=== PATIENT | female | born 1950 | race Caucasian/White ===

== ENCOUNTER 2017-09-12 06:40 | Day surgery (SDC) | payer OTHER, SELFPAY ==
[2017-08-30 08:24] VITALS: BMI 24.3
[2017-09-12] VITALS (18 sets, daily range): BP systolic 115–166; BP diastolic 58–89; PULSE 52–68; RESP 8–21; TEMP 35.8–36.6; O2SAT 92–100; BMI 24.3
[2017-09-12] MEDS: LACTATED RINGERS 1,000 ML 42 ML IV (07:36)
[2017-09-12] MEDS: CEFAZOLIN 2 GM/100 ML FROZ.PIGGY IV (07:56)
[2017-09-12] MEDS: BUPIVACAINE 0.25% W/ EPI VIAL 30 ML INJ (08:38)
[2017-09-12] MEDS: fentaNYL 100 MCG/2 ML INJ 50 MCG IV ×2 (09:31→09:37)
--- NOTE | 2017-09-12 09:33 | PM.PREOP ---
Pre-operative Note Interval Note Pre-op Check: History & Physical Reviewed by Physician
[2017-09-12] MEDS: HYDROMORPHONE 2 MG INJ 0.5 MG IV ×2 (09:34→09:46)
--- NOTE | 2017-09-12 10:02 | SUR.PHASEI ---
REPORT CALLED TO RAMÓN WALTERS ON ACUTE CARE FLOOR. PT IN STABLE CONDITION, VSS. IV SITE CLEAR. LILY-PAD OBSERVED TO BE C/D/I. CATHETER SECURE AND DRAINING CLEAR YELLOW URINE. PT TOLERATING ORAL INTAKE WITHOUT ANY DIFFICULTLY. PT DENIES ANY NAUSEA. PT STATES PAIN IS 1/10 AND TOLERABLE AT THIS TIME. PT LAYING IN BED WITH EYES CLOSED AND APPEARS COMFORTABLE AT THIS TIME. PT BEING TRANSFERED TO ACUTE CARE.
--- NOTE | 2017-09-12 10:12 | SUR.PHASEI ---
PT TRANSFERED TO ACUTE CARE FLOOR IN STABLE CONDITION, VSS. PT TALKING TO RN DURING TRANSPORT. BEDSIDE REPORT GIVEN TO RAMÓN WALTERS. TRANSFERED CARE OF PT TO RAMÓN WALTERS.
[2017-09-12] MEDS: KETOROLAC 30 MG/ML VIAL IV ×2 (10:41→17:37)
[2017-09-12] MEDS: OXYCODONE/ACETAMINOPHEN 5/325 TABLET 2 TAB PO ×4 (11:13→23:14)
[2017-09-12] MEDS: PANTOPRAZOLE 20 MG TABLET PO ×2 (12:54→22:41)
[2017-09-12] MEDS: hydroCHLOROthiazide 25 MG TABLET PO (13:49)
[2017-09-12] MEDS: LACTATED RINGERS 1,000 ML 125 ML IV (17:38)
--- NOTE | 2017-09-12 18:24 | PM.GYNOP.1 ---
Operative Date/Time/Diagnoses Date of procedure: 09/12/17 Time of procedure: 09:45 Pre-op diagnosis: Cystocele and rectocele Post-op diagnosis: same Procedure: Procedures Operation Date: 09/12/17 07:45 Actual Procedures Side Surgeon p Colporrhaphy Anterior/Posterior Colporrhaphy Not Applicable Kymberly Bustamante MD Anterior and posterior repair Indications: Symptomatic cystocele and rectus Surgeon: Kymberly Bustamante Patient Safety Coordinator: David Antony Anesthesia Type: General Operative Notes Findings: Third-degree cystocele Third-degree rectocele Closure Type: primary Specimen(s): none Applied: catheter Estimated blood loss (mL): 50 Blood products transfused: none Procedure in detail: Two Allis clamps were placed at the apex of the cystocele. 6 mL of half percent Marcaine with epinephrine were injected and an incision was made with a #10 blade between the 2 Allis clamps. Wide Allis clamps were placed on the midline of the cystocele approximately 6. The mucosa was undermined using the Metzenbaum scissors and the mucosa incised in the midline moving the wide Allis clamps to the edges of the mucosa. The mucosa was dissected off the underlying fascia using an open moistened Ray-Orlando and a #10 blade. The fascia was reapproximated with 0 Vicryl with a series of horizontal mattress sutures. The excess vaginal mucosa was excised. The mucosa was closed using simple interrupted sutures with 2-0 Vicryl including the underlying fascia to close the space. The weighted speculum was removed from the vagina. Allis clamps were placed at the mucocutaneous junction at the introitus. 6 mL of half percent Marcaine with epinephrine were injected. An incision was made with a #10 blade between the 2 Allis clamps, and a triangular piece of skin and underlying subcutaneous tissue was removed. Allis clamps were placed in the midline of the rectocele. 10 mL of half percent Marcaine with epinephrine were injected submucosally. The mucosa was undermined using the Metzenbaum scissors and the mucosa incised in the midline, moving the wide Allis clamps to the mucosal edges. The underlying fascia was dissected off of the mucosa using an open moistened Ray-Orlando and a #10 blade. The fascia was reapproximated using 0 Vicryl with a series of horizontal mattress sutures. The excess vaginal mucosa was excised. The mucosa was closed using a series of simple interrupted sutures with 2-0 Vicryl including the underlying fascia to close the space. On the perineum 0 Vicryl was used to reapproximate the levator muscle. The subcutaneous layer was closed with 2-0 Vicryl. The skin was closed with 3-0 chromic in a subcuticular fashion. Hemostasis was achieved. A Betadine moistened vaginal pack was placed into the vagina. A rectal exam was done and there were no sutures palpable in the rectum. The urine was clear. Sponge, lap, and instrument counts were correct x-2. The patient tolerated the procedure well, was taken to PACU in stable condition. Complications: none Post-operative Condition: stable Disposition: PACU Plan for aftercare: To Med/Surg after recovery
--- NOTE | 2017-09-12 19:11 | PC.NURSE ---
Maddie resting in bed, ox3. Reporting pain 4/10 to lower abdomen, pelvis & groin after receiving IV Toradol. Assisted her to reposition to right side which she said gave immediate relief. Medicated with 2 Percocet. Rosenbaum patent with dilute clear yellow urine output, secured to leg. Mikala-pad is CDI. IV LR infusing at 125 ml/hour per new order by Dr Bustamante. Dr Bustamante here to see patient.
[2017-09-12] MEDS: ATENOLOL 50 MG TABLET 100 MG PO (21:00)
[2017-09-12] MEDS: LOVASTATIN 20 MG TABLET 40 MG PO (22:37)
[2017-09-12] MEDS: LISINOPRIL 20 MG TABLET 40 MG PO (22:39)
[2017-09-12] MEDS: DOCUSATE 250 MG CAPSULE PO (22:39)
--- NOTE | 2017-09-13 00:38 | PC.NURSE ---
Addendum entered by Letty Hodges R.N. 09/13/17 05:18: Slept at intervals. States she feels urge to urinate but has had 500cc urine in dewitt bag; feels it is related to packing/catheter. States pain in perineal area is 1/10 and requesting Tylenol which she does not have ordered so requested 1 Percocet rather than the ordered 2 tabs; medicated as requested. Original Note: Patient is alert and oriented. Breath sounds CTA with RA sat of 99%. HRR. Denies nausea. BT present and is passing flatus. Indwelling catheter is patent; linnea pad with small spot sanguinous drainage posterior pad. Pain internal she believes is due to catheter/packing is now 1/10 after receiving Percocet at shift changed. Independent with bed mobility. Fall risk score is moderate; bed alarm not needed at this time as patient oriented, no hx of falls, and is agreeable to calling for assist should she need to get out of bed.
[2017-09-13] MEDS: LACTATED RINGERS 1,000 ML 125 ML IV (02:12)
[2017-09-13 05:09] VITALS: BP 132/72; PULSE 56; RESP 16; TEMP 36.9
[2017-09-13] MEDS: OXYCODONE/ACETAMINOPHEN 5/325 TABLET 2 TAB PO ×3 (05:14→13:19)
[2017-09-13 05:58] LABS: Add Manual Diff / Slide Review NO; Basophils Percent Auto 0.2 % (0-2); Eosinophils Percent Auto 0.3 % (2-4); Hematocrit 34.6 % (36-46); Lymphocytes Percent Auto 25.6 % (25-40); Mean Corpuscular HGB Conc 34.6 % (30-36); Mean Corpuscular Hemoglobin 31.1 PG (26-34); Monocytes Percent Auto 7.2 % (3-14); Neutrophils Absolute Auto 5500 /uL (3000-5900); Neutrophils Percent Auto 66.7 % (50-75); Platelet Count 144 X10^3/uL (150-400); Red Blood Cell Count 3.85 X10^6/uL (4.0-5.2); Red Cell Distribution Width 12.6 % (11.6-14.8); White Blood Cell Count 8.3 X10^3/uL (4.5-11.0)
[2017-09-13 07:15] VITALS: BP 126/71; PULSE 54; RESP 16; TEMP 37; O2SAT 98
[2017-09-13] MEDS: hydroCHLOROthiazide 25 MG TABLET PO (09:27)
[2017-09-13] MEDS: PANTOPRAZOLE 20 MG TABLET PO (09:27)
[2017-09-13] MEDS: DOCUSATE 250 MG CAPSULE PO (09:27)
--- NOTE | 2017-09-13 11:56 | PC.NURSE ---
Addendum entered by Betsy Mott R.N. 09/13/17 14:53: Discharge: IV dc'd intact. Provided and reviewed all d/c info. Given follow up appt date/time. Given script for Oxycodone. Verbalized understanding of all d/c instructions and stated no further questions. Wheeled out to private vehicle by nursing staff. All belongings sent at discharge. Original Note: Addendum entered by Betsy Mott R.N. 09/13/17 13:24: Voided another 450 ml clear yellow urine and feels like she emptied her bladder. C/O /10 vaginal/lower abd pain- medicated with 2 tabs Percocet per her request. Indep to BR, steady on feet and denies dizziness/lightheadeness. Eager to see Dr Bustamante re: poss. d/c home today. Calls appropriately with needs. Original Note: Shift summary: Alert and oriented X3. Rosenbaum dc'd at 0900 per MD order. IV saline locked also. Patient voided 200 ml clear yellow urine into hat at 1045. She felt like she emptied her bladder and post void residual bladder scan showed 0 ml. Minimal pain, took 1 tab Vicodin approx 0930. Very scant vaginal spotting on linnea-pad. Tolerating PO's without N/V. Hopes she may get to d/c home later today. Up indep in room, or with 's SBA. Denies dizziness or lightheadedness. Calls appropriately with needs.
--- NOTE | 2017-09-13 15:34 | CM.DANOTE ---
DCP/Assessment: Reviewed chart. Patient is a 67yr old female admitted [facility] for cystocele and rectocele repair performed by Dr. Bustamante on 09-12-17. No PCP listed. Primary payor is 1)[employer] 2)[employer]. Met with patient and spouse/Rigo in room explained CM/SW role. Patient fully dressed and reports that she is going home today. Patient reports that she is completely I with all ADL's. Patient's spouse to provide transport. No d/c needs identified. P: Home today. JULIO Vigil Discharge Planning/Care Management CM Discharge Assessment Start: 09/13/17 15:32 Freq: Status: Active Protocol: Document 09/13/17 15:33 KJS (Rec: 09/13/17 15:34 KJS [id number]) Discharge Planning Assessment Assigned Pan Devulcanizer JULIO/Otilia History Provided By Patient Significant Other Has Patient been admitted in last 30 No days? Prior Living Arrangements House Household Members spouse Type of transporation used prior to Drives own vehicle admit Independent with ADL's Yes Is patient alert and oriented? Yes Caregiver for Another No Discharge Plan Home Transportation Arrangement Private automobile.
== END 2017-09-13 14:56 | disposition home or self-care (01) ==
LOC: OR 06:41 → AC 10:16
PROVIDERS: Visit Provider Obstetrics & Gynecology
PROC: (CPT 57260; principal; 2017-09-12 07:45)
DX: N81.10 Cystocele, unspecified (principal); N81.6 Rectocele; K21.9 Gastro-esophageal reflux disease without esophagitis
CPT/HCPCS: 57260; 36415; 85025; J0330; J0690; J1100; J1170; J1885; J2405; J2704; J3010

== ENCOUNTER 2018-08-04 09:24 | Day surgery (SDC) | payer OTHER, SELFPAY ==
[2017-09-12 10:20] VITALS: BMI 24.3
[2018-08-04 09:51] VITALS: BMI 21.4
[2018-08-04 09:56] VITALS: BP 126/84; PULSE 65; RESP 16; TEMP 36.4; O2SAT 99
[2018-08-04] MEDS: SODIUM CHLORIDE 0.9% 1,000 ML 200 ML IV (10:00)
--- NOTE | 2018-08-04 10:37 | PM.HP.1 ---
History of Present Illness Date Patient Seen: 08/04/18 Time Patient Seen: 10:38 Chief complaint: [id number] colonoscopy Narrative: The patient is a woman whose last colonoscopy was at least 5 years ago. She has had polyps removed in the past. She is here for a screening exam. Patient History Medical History Constipation (Chronic) Cystocele (Chronic) GERD (gastroesophageal reflux disease) (Chronic) HTN (hypertension) (Chronic) Hyperlipidemia (Chronic) Impaired vision (Chronic) Pelvic relaxation (Chronic) Rectocele (Chronic) Surgical History H/O abdominoplasty (Resolved) History of bilateral salpingectomy (Resolved) History of breast augmentation (Resolved) History of total abdominal hysterectomy (Resolved) Status post appendectomy (Resolved) S/P total abdominal hysterectomy and bilateral salpingo-oophorectomy Social History household members: spouse Smoking Status: Never smoker alcohol intake: current Family & Social History Social History: household members spouse Tobacco & Substance use: Smoking Status Never smoker alcohol intake current alcohol intake frequency a few times a week Substance Use Type does not use Meds Home Medications Medication Instructions Recorded Confirmed Type atenolol 100 mg PO QDAY #0 10/17/10 08/04/18 History lisinopril 40 mg PO QDAY #0 10/17/10 08/04/18 History omeprazole 20 mg PO BID 09/12/17 08/04/18 History tolterodine [Detrol LA] 4 mg PO QDAY #90 tab 07/07/18 08/04/18 Rx estradiol 1 mg PO DAILY 08/04/18 08/04/18 History spironolactone 50 mg PO BID 08/04/18 08/04/18 History Allergies Allergy/AdvReac Type Severity Reaction Status Date / Time No Known Drug Allergies Allergy Verified 08/04/18 09:48 Review of Systems Review of Systems All systems reviewed & are unremarkable except as noted in HPI and below Cardiovascular Comments: Has blanching with fingers and numbness in the fingers with cool temperatures Exam Vital Signs (past 8 hours): - 08/04/18 09:56 Temperature 97.6 F Pulse Rate 65 Respiratory Rate 16 Blood Pressure 126/84 Pulse Oximetry 99 Oxygen Delivery Method Room Air Narrative Exam Narrative: Pleasant cooperative patient no apparent distress. Lungs are clear to auscultation. No rales or rhonchi. Heart regular rate and rhythm no murmur gallop. Abdomen is soft nontender without mass. No obvious hernias. Patient is alert and oriented x3. Assessment & Plan Assessment & Plan narrative: The patient for a screening colonoscopy. I have discussed the procedure with them. Risks of bleeding, perforation which would necessitate major operation, failure to find remove all lesions, the potential tattoo were all discussed. All questions were answered. They wished to proceed.
--- NOTE | 2018-08-04 10:40 | PM.PREOP ---
Pre-operative Note Interval Note History & Physical reviewed/Exam performed by Physician: Yes Changes to H&P: No ASA Class (for procedural sedation): II
[2018-08-04] MEDS: MIDAZOLAM 5 MG/5 ML VIAL IV (11:13)
--- NOTE | 2018-08-04 11:15 | PM.OP.ENDO ---
Operative Date/Time/Diagnoses Date of procedure: 08/04/18 Time of procedure: 11:15 Pre-op diagnosis: Screening exam for colon cancer. Last exam 5 years ago. Patient has had polyps in the past. Post-op diagnosis: same Procedure & Clinicians Study performed: Colonoscopy Same procedure as scheduled: Yes Indications: Screening Surgeon: Bran Sanz Procedure Notes SCOAP/Timeout: Performed Procedure in detail: The patient was placed in the left lateral decubitus position and underwent IV sedation directed by the surgeon consisting of fentanyl and Versed. Digital exam was unremarkable. The scope was inserted and advanced through the rectum into the sigmoid, descending, transverse, and ascending colon. A stiffener was inserted in order to reach the cecum. The cecum was reached identified by the ileocecal valve and the appendiceal opening. The ileocecal valve was briefly cannulated. The terminal ileum was normal in appearance. The scope was gradually brought out. No Polyps were found. The scope ultimately was retroflexed in the rectum. The appearance was normal. The scope was removed and the patient tolerated the procedure well. The prep was excellent. Scope withdrawal time: 11 minutes Sedation minutes: 29 Findings: other findings (Normal exam) Specimen(s): none sent Complications: none Recommendations: Colonscopy in 5 years (Due to history of polyps) Follow up: as needed Disposition: PACU
[2018-08-04 11:16] VITALS: BP 131/82; PULSE 63; RESP 15; TEMP 36.7; O2SAT 100
[2018-08-04] MEDS: fentaNYL 250 MCG/5 ML INJ IV (11:16)
[2018-08-04 11:21] VITALS: BP 124/81; PULSE 59; RESP 12; O2SAT 100
[2018-08-04 11:26] VITALS: BP 126/87; PULSE 62; RESP 13; O2SAT 100
[2018-08-04 11:49] VITALS: BP 128/80; PULSE 61; RESP 16; TEMP 36.3; O2SAT 100
== END 2018-08-04 11:55 | disposition home or self-care (01) ==
PROVIDERS: PCP Family Medicine; Visit Provider Specialist
PROC: 0DJD8ZZ Inspection of Lower Intestinal Tract, Via Natural or Artificial Opening Endoscopic (ICD-10-PCS; CPT 45378; principal; 2018-08-04 10:45)
DX: Z86.010 Personal history of colon polyps (principal); I10 Essential (primary) hypertension; E78.5 Hyperlipidemia, unspecified
CPT/HCPCS: 45378; 99152; 99153; J2250; J3010

== ENCOUNTER → 2020-05-05 10:03 | Outpatient (CLI) | payer OTHER, MEDICARE, SELFPAY ==
[2017-09-12 10:20] VITALS: BMI 24.3
[2020-05-05 11:37] LABS: HEMOLYSIS < 15 (0-50); Potassium 3.9 mmol/L (3.4-5.1)
== END ==
PROVIDERS: PCP Family Medicine; Referring Provider Physician Assistant; Visit Provider Physician Assistant
DX: L64.8 Other androgenic alopecia (principal)
CPT/HCPCS: 36415; 84132

== ENCOUNTER 2021-03-28 08:03 | Emergency (ER) | payer MEDICARE, OTHER, SELFPAY ==
[2017-09-12 10:20] VITALS: BMI 24.3
[2021-03-28 08:19] VITALS: BP 135/66; PULSE 57; RESP 20; TEMP 36.2; O2SAT 100; BMI 22.7
--- NOTE | 2021-03-28 10:19 | CM.SWNOTE ---
TIMING INSPECTOR Note TIMING INSPECTOR requested by Dr Harper to assist in getting this patient grief support services; she arrives to the ED today w/spouse Rigo...who will be admitted to the acute care floor for C19 pneumonia. This couple has recently lost their daughter who in the hospital after battling metastatic breast cancer. Patient has an 18 yo grandson they are assisting through this time. Met w/patient to introduce role; she explains that everything is happening at once and admits she is exhausted. Denies needs from this TIMING INSPECTOR, however, willing to accept a brochure from [facility] We discussed grief support and the importance of connecting w/professionals to assist in processing grief and patient stated understanding. Patient is concerned about her 's well being and is currently organizing the business aspect of her daughter's and will; which patient states is helping keep me busy TIMING INSPECTOR available today. TIMING INSPECTOR team also available to patient and her spouse Rigo while Rigo is admitted on the acute care floor. JULIO Owens
--- NOTE | 2021-03-28 11:14 | ED_ITS ---
HPI - Psych General Chief Complaint: Psychiatric Symptoms Stated Complaint: not able to sleep Time Seen by Provider: 03/28/21 08:15 Source: patient Mode of arrival: Ambulatory History of Present Illness HPI Narrative: 70-year-old woman with a history of hypertension whose daughter on the of this month presents with mild COVID symptoms and significant grief reaction issues. She needs sleep presented with her who has much more severe COVID symptoms and briefly described significant difficulty sleeping, excessive fatigue, perseverating thoughts and difficulty in dealing with the recent loss of her daughter as well as acute illness with her . She describes no specific fevers, mild cough mild sore throat. No palpitations or chest pain no lower extremity edema. Related Data Home Medications Medication Instructions Recorded Confirmed atenolol 25 mg tablet 100 mg PO QDAY #0 10/17/10 08/04/18 lisinopril 10 mg tablet 40 mg PO QDAY #0 10/17/10 08/04/18 omeprazole 20 mg tablet,delayed 20 mg PO BID 09/12/17 08/04/18 release estradiol 1 mg tablet 1 mg PO DAILY 08/04/18 08/04/18 spironolactone 50 mg tablet 50 mg PO BID 08/04/18 08/04/18 Previous Rx's Medication Instructions Recorded tolterodine 4 mg capsule,extended 4 mg PO DAILY #90 cap 11/07/19 release 24 hr estradiol 10 mcg vaginal tablet 10 mcg VAG 2XW #24 tab 09/23/20 (Yuvafem) diazepam 5 mg tablet 5 mg PO TID PRN #20 tab 03/28/21 Allergies Allergy/AdvReac Type Severity Reaction Status Date / Time No Known Drug Allergies Allergy Verified 03/28/21 08:19 Review of Systems Review of Systems Narrative: Remainder of complete review of systems is otherwise unremarkable except for that included in the HPI. Patient History Medical History Actinic keratosis (~2014) Chickenpox Colon polyps (~2003) Constipation Cystocele Endometriosis (~1992) GERD (gastroesophageal reflux disease) (~1999) Hemorrhoids HTN (hypertension) (~1996) Hyperlipidemia Impaired vision Measles Pelvic relaxation Rectocele Vertigo Surgical History H/O abdominoplasty History of bilateral salpingectomy History of breast augmentation (~2010) History of colonoscopy (~2009) History of total abdominal hysterectomy (~1992) S/P total abdominal hysterectomy and bilateral salpingo-oophorectomy Status post appendectomy (~2011) Family History Mother Hyperlipidemia Hypertension Brother Lung cancer Grandfather Stroke Grandmother No problems noted. Social History household members: spouse Smoking Status: Never smoker alcohol intake: current Smoking Status: Never smoker alcohol intake frequency: a few times a week Substance Use Type: does not use Exam Initial Vital Signs Initial Vital Signs: Vital Signs Temperature 97.1 F L 03/28/21 08:19 Pulse Rate 57 L 03/28/21 08:19 Respiratory Rate 20 03/28/21 08:19 Blood Pressure 135/66 03/28/21 08:19 Pulse Oximetry 100 03/28/21 08:19 General: Alert appropriate in no acute distress Respiratory: Able to speak in full sentences, no obvious respiratory distress Skin: No obvious rashes, warm and dry Neurologic: Grossly intact no obvious asymmetries or abnormalities Psych: appropriate insight, somewhat flat affect, mildly tearful fluent and ap propriate speech patterns Course Orders Ordered: ED Orders 03/28/21 09:22 Consult to PERSONAL ATTENDANT - Senior C Developer Stat Vital Signs Vital signs: Vital Signs - 8 hr 03/28/21 08:19 Temperature 97.1 F L Pulse Rate 57 L Respiratory Rate 20 Blood Pressure 135/66 Pulse Oximetry 100 MDM - Psych MDM Narrative Medical decision making narrative: 70-year-old woman with significant acute grief reaction after the loss of her daughter 12 days ago with concurrent mild COVID symptoms, and significant COVID infection in her . We briefly discussed the that use of anti anxiety medications as a bridge to help her deal with her grief and help with sleep. [facility] was able to give her some information and suggestions for help with acute grieving. At this time she is safe for home discharge Discharge Plan Departure Patient Disposition: Home Clinical Impression: Grief reaction, COVID-19 Instructions: Coping with Grief Activity Restrictions/Additional Instructions: Thank you for coming in today I am so sorry for the loss of your daughter. I am going to give you a prescription for diazepam/Valium, and anxiety medication. This can help dull the edges of the grief briefly so that you can function and do what needs to be done. This does not fix anything. Hopefully can make the steps that you need to take his your making way through this grief process slightly less painful. This prescription was electronically transmitted to [facility] Use the medication as needed to help with anxiety and sleep. Do not drive while taking this and if it does make you sleepy feel free to take a nap if you are able to do so or have an extra cup of coffee you are not. I wish you the best Prescriptions: New diazepam 5 mg tablet 5 mg PO TID PRN (Reason: prn) Qty: 20 0RF No Action lisinopril 10 MG tablet 40 mg PO QDAY Qty: 0 0RF atenolol 25 MG tablet 100 mg PO QDAY Qty: 0 0RF tolterodine 4 mg capsule,extended release 24hr 4 mg PO DAILY Qty: 90 0RF Rx Instructions: Please schedule appointment for additional refills. estradiol [Yuvafem] 10 mcg tablet 10 mcg VAG 2XW Qty: 24 0RF Rx Instructions: Please call and schedule follow up appointment. omeprazole 20 mg Tablet,Delayed Release (Dr/Ec) 20 mg PO BID 0RF estradiol 1 mg Tablet 1 mg PO DAILY 0RF spironolactone 50 mg Tablet 50 mg PO BID 0RF Referrals: Irvin Rueda DO [Primary Care Provider] -
== END 2021-03-28 11:44 | disposition home or self-care (01) ==
PROVIDERS: Emergency Provider Emergency Medicine; PCP Family Medicine
DX: F43.20 Adjustment disorder, unspecified (principal); U07.1 COVID-19
CPT/HCPCS: 99282; 99283

== ENCOUNTER → 2022-09-27 13:36 | Outpatient (CLI) | payer OTHER, MEDICARE, SELFPAY ==
[2017-09-12 10:20] VITALS: BMI 24.3
[2022-09-30 16:27] LABS: H. Pylori Antigen Stool Negative (Negative)
== END ==
PROVIDERS: PCP Nurse Practitioner Family; Referring Provider Surgery; Visit Provider Surgery
DX: R10.9 Unspecified abdominal pain (principal)
CPT/HCPCS: 87338

== ENCOUNTER 2022-11-09 08:59 | Day surgery (SDC) | payer OTHER, MEDICARE, SELFPAY ==
[2017-09-12 10:20] VITALS: BMI 24.3
[2022-11-09] VITALS (8 sets, daily range): BP systolic 130–162; BP diastolic 65–95; PULSE 54–87; RESP 14–26; TEMP 36.4–36.8; O2SAT 95–100
--- NOTE | 2022-11-09 | PATH_ITS ---
[facility] Accession Number: [id number] No. of containers..03 Tissue . 01 Material submitted: . PART A: small bowel - SMALL BOWEL PART B: gastrointestinal site - GASTRIC PART C: colon - SIGMOID POLYP . 01 Diagnosis: A. Small Bowel, Biopsy: Small bowel mucosa with no significant diagnostic alterations. No evidence of celiac disease. . B. Gastric, Biopsy: Gastric oxyntic-type mucosa with features suggestive of early fundic gland polyp. No Helicobacter pylori organisms identified on H/E slide. No intestinal metaplasia, dysplasia, or malignancy identified. . C. Sigmoid Colon Polyp, Biopsy: Tubular adenoma. [facility] 11/17/2022 1119 Local . 01 Electronically signed: . Karen Ludwig MD, Pathologist NPI- [id number] . 01 Gross description: . Part A: SMALL BOWEL: eceived in formalin is 1 fragment(s) of craven, soft tissue measuring 0.3 x 0.1 x 0.1 cm submitted entirely in 1 cassette(s) Part B: GASTRIC : Received in formalin is 2 fragment(s) of craven, soft tissue measuring 0.3 x 0.1 x 0.1 cm to 0.2 x 0.2 x 0.1 cm submitted entirely in 1 cassette(s) Part C: SIGMOID POLYP: Received in formalin is 1 fragment(s) of craven, soft tissue measuring 0.5 x 0.4 x 0.4 cm submitted entirely in 1 cassette(s) /AA 11/17/2022 1406 Local . 01 Pathologist provided ICD-10: D13.1, D12.5 . 01 CPT . 648005, 095641, 458306 Specimen Comment: A courtesy copy of this report has been sent to [phone] Performed at: 01 [facility] [address] [facility] [place], [place], [place] [id number] MD Kris Medrano MD Phone: [phone]
--- NOTE | 2022-11-09 | DI.RAD.S_ITS ---
PROCEDURE: XR ABDOMEN 1V INDICATIONS: abd pain p/colonoscopy TECHNIQUE: One view of the abdomen acquired. COMPARISON: [facility], CT, ABDOMEN/PELVIS WITH CONTRAST, 09/24/2013, 0:21. [facility], , XR PELVIS WITH LATERAL HIP RIGHT, 01/08/2022, 11:43. FINDINGS: Surgical changes and devices: Clips in the right lower quadrant. Bowel: Prominent bowel gas within the colon. Right colon is prominent. Scattered small bowel gas. No free air demonstrated. Soft tissues: No suspicious abdominal calcifications. Bones: No suspicious bony lesions. IMPRESSION: No free air is demonstrated. Prominent gas in the colon. Dictated by: Mervin Dale M.D. on 11/09/2022 at 11:52 Approved by: Mervin Dale M.D. on 11/09/2022 at 11:54
[2022-11-09] MEDS: LACTATED RINGERS 1,000 ML 200 ML IV (09:17)
--- NOTE | 2022-11-09 10:13 | P.HP_ITS ---
History of Present Illness History of Present Illness Date Patient Seen: 11/09/22 Time Patient Seen: 10:13 Chief complaint: EGD/Colonoscopy Narrative: 72-year-old woman with epigastric here for diagnostic EGD and colonoscopy. Please refer to the H and P from August 2022 for further detail. In the interim she reports an improvement in her epigastric pain and nausea after the introduction of a probiotic and doubling the dose of her PPI medication. [facility] Medical History Actinic keratosis (~2014) Chickenpox Colon polyps (~2003) Constipation Cystocele Endometriosis (~1992) GERD (gastroesophageal reflux disease) (~1999) Hemorrhoids HTN (hypertension) (~1996) Hyperlipidemia Impaired vision Measles Pelvic relaxation Rectocele Vertigo Surgical History H/O abdominoplasty History of bilateral salpingectomy History of breast augmentation (~2010) History of colonoscopy (~2009) History of total abdominal hysterectomy (~1992) S/P total abdominal hysterectomy and bilateral salpingo-oophorectomy Status post appendectomy (~2011) Family History Mother Hyperlipidemia Hypertension Brother Lung cancer Grandfather Stroke Grandmother No problems noted. Daughter Breast cancer Gallstones Aunt Cancer Uncle Cancer Social History (Updated 09/24/22 @ 10:45 by Kymberly Voss MA) marital status: household members: spouse lives independently: Yes occupational status: unemployed Smoking Status: Never smoker alcohol intake: current substance use type: does not use Meds Home Medications and Allergies Home Medications Medication Instructions Recorded Confirmed Type atenolol 25 mg tablet 50 mg PO QDAY ##0 10/17/10 11/09/22 History omeprazole 20 mg tablet,delayed 20 mg PO BID 09/12/17 11/09/22 History release estradiol 1 mg tablet 1 mg PO DAILY 08/04/18 11/09/22 History Lactobacillus combo no.23 [Ector PO 09/24/22 09/24/22 History Probiotic] biotin PO 09/24/22 09/24/22 History cholecalciferol (vitamin D3) PO 07/28/23 07/28/23 History hydrochlorothiazide 25 mg tablet 25 mg PO DAILY 09/24/22 11/09/22 History lovastatin 10 mg tablet 10 mg PO DAILY 09/24/22 11/09/22 History magnesium glycinate PO 09/24/22 09/24/22 History zinc acetate PO 09/24/22 09/24/22 History Allergies Allergy/AdvReac Type Severity Reaction Status Date / Time No Known Drug Allergies Allergy Verified 11/09/22 09:26 Exam Vital Signs (past 8 hours): - 11/09/22 09:37 Temperature 98.2 F Pulse Rate 87 Respiratory Rate 16 Blood Pressure 156/82 H Oxygen Delivery Method Room Air Oxygen Delivery Method Room Air Narrative Exam Narrative: General adult woman alert oriented no acute distress Abdomen soft nontender nondistended Assessment & Plan Assessment and plan (1) Abdominal pain: Qualifiers: Abdominal location: epigastric Qualified Code(s): R10.13 - Epigastric pain Status: Acute Assessment & Plan narrative: 72-year-old woman with epigastric pain and nausea here for diagnostic EGD and colonoscopy. Technical details were discussed. Risks, benefits, alternatives explained. Risks including but not limited to myocardial infarction, aspiration, bleeding, pain, missed lesion, incomplete examination, need for further radiographic studies, intestinal perforation, and need for major abdominal surgery were discussed. All questions were answered to their satisfaction, and they are in agreement with this plan.
--- NOTE | 2022-11-09 10:15 | PM.OP.EC ---
Operative Date/Time/Diagnoses Date of procedure: 11/09/22 Time of procedure: 10:15 Pre-op diagnosis: Epigastric pain Post-op diagnosis: other (Gastritis and duodenitis) Procedure & Clinicians Study performed: Esophagoduodenoscopy and colonoscopy Same procedure as scheduled: Yes Indications: 72-year-old woman with epigastric pain and nausea here for diagnostic esophagoduodenoscopy and colonoscopy Surgeon: Sung Varela Procedure Notes Procedure in detail: The history and physical was performed/updated and the patient is ASA class is 2. The procedure was discussed in detail with the patient. Potential risks complications including infection, bleeding, missed diagnosis, perforation, need for surgery, and were explained. Their questions were answered and informed consent was obtained. Patient placed in left lateral decubitus position. Time out was performed. Procedural sedation was administered by Anesthesia. A bite block was placed. the scope was inserted into the mouth and advanced through the esophagus and into the stomach. The stomach was notable for mild gastritis no active hemorrhage biopsies of the stomach were obtained with forceps. The pylorus was intubated and the 1st portion of the duodenal was notable for duodenitis no distinct ulcer or active hemorrhage biopsies were obtained. The scope was withdrawn into the esophagus the Z line was seen at 35 cm from the incisions. There was no Cole's esophagitis, esophageal masses or strictures. Stomach was desufflated and scope removed. Examination began with a thorough inspection of the perianal area there was no evidence of fissures, fistulae, external hemorrhoids or cutaneous malignancy. The colonoscopy scope was then placed into the anal canal and was advanced to the cecum, which was identified by the ileocecal valve, the appendiceal orifice and the confluence of the taenia. The scope was then slowly withdrawn examining colon thoroughly in all directions, irrigating it of any residual stool. Sigmoid 5 mm polyp removed in entirety with cold snare. The patient tolerated the procedure well. They will be discharged once criteria are met. The prep was of good/excellent quality. The withdrawl time was 6 minutes. Specimen(s): other (Gastric, duodenum, sigmoid polyp) Impression: Gastritis, duodenitis, sigmoid polyp Post-procedure Plan for aftercare: Continue omeprazole 20 mg twice daily. Will notify with biopsy results. Colonoscopy follow-up is dependent on pathology findings likely 5 years. Disposition: same day surgery
--- NOTE | 2022-11-09 11:12 | SUR.PHASEI ---
1105 notified r/t increasing pt abd discomfort
[2022-11-09] MEDS: LORazepam 2 MG/ML INJ 0.5 MG IV (11:27)
== END 2022-11-09 12:15 | disposition home or self-care (01) ==
PROVIDERS: PCP Nurse Practitioner Family; Referring Provider Surgery; Visit Provider Surgery
PROC: 0DJ08ZZ Inspection of Upper Intestinal Tract, Via Natural or Artificial Opening Endoscopic (ICD-10-PCS; CPT 43235; principal; 2022-11-09 10:15)
PROC: 0DJD8ZZ Inspection of Lower Intestinal Tract, Via Natural or Artificial Opening Endoscopic (ICD-10-PCS; CPT 45378; 2022-11-09 10:15)
DX: R10.13 Epigastric pain (principal); K29.70 Gastritis, unspecified, without bleeding; K29.80 Duodenitis without bleeding; D12.5 Benign neoplasm of sigmoid colon; D13.1 Benign neoplasm of stomach
CPT/HCPCS: 45385; 43239; 74018; J2060; J2704

== ENCOUNTER → 2023-01-26 14:22 | Outpatient (CLI) | payer OTHER, MEDICARE, SELFPAY ==
[2017-09-12 10:20] VITALS: BMI 24.3
--- NOTE | 2023-01-26 14:25 | DI.RAD.S_ITS ---
PROCEDURE: XR CERVICAL SPINE 4V OR 5V INDICATIONS: NECK PAIN TECHNIQUE: 5 views of the cervical spine acquired. COMPARISON: None. FINDINGS: Bones: No fractures or dislocations to the C7-T1 level. Severe degenerative changes are present throughout the cervical spine including intervertebral disc space narrowing, endplate sclerosis, and osteophytosis. There is loss of the expected cervical lordosis. Trace anterolisthesis is present at C4-5 and C7-T1. There is mild foraminal stenosis throughout the cervical spine on the left. On the right there is severe neural foraminal stenosis from C2-C5 and at C6-7. Soft tissues: No prevertebral soft tissue swelling. IMPRESSION: 1. Severe degenerative changes of the cervical spine with mild to severe foraminal stenosis as above. 2. No compression deformities. Dictated by: Annie Delcid M.D. on 01/26/2023 at 15:35 Approved by: Annie Delcid M.D. on 01/26/2023 at 15:38
== END ==
PROVIDERS: PCP Nurse Practitioner Family; Referring Provider Physical Medicine & Rehabilitation; Visit Provider Physical Medicine & Rehabilitation
DX: M54.2 Cervicalgia (principal); M48.02 Spinal stenosis, cervical region
CPT/HCPCS: 72050

== ENCOUNTER → 2023-01-31 19:30 | Outpatient (CLI) | payer OTHER, MEDICARE, SELFPAY ==
[2017-09-12 10:20] VITALS: BMI 24.3
--- NOTE | 2023-01-31 19:32 | DI.MRI.S_ITS ---
PROCEDURE: MR CERVICAL SPINE WO CON INDICATIONS: Cervical radiculopathy TECHNIQUE: Noncontrast sagittal T1 spin echo and T2 fast spin echo, sagittal STIR, foraminal oblique sagittal T2 fast spin echo, and axial gradient echo or T2 fast spin echo through the cervical spine. COMPARISON: [facility] Outside Film, MR, MR CERVICAL SPINE WITHOUT CONTRAST, 11/27/2019, 9:11. FINDINGS: Image quality: Excellent. Alignment and Curvature: Straightening of normal cervical lordosis. Bone Marrow: Marrow demonstrates normal overall signal. Spinal Cord: Visualized spinal cord has normal size and signal. No cerebellar tonsillar herniation. Paraspinous Soft Tissues: No paravertebral masses. Prevertebral soft tissues are normal in thickness. Right thyroid lobe nodule measuring 1.2 centimeters. Left thyroid lobe nodule measuring 1.6 centimeters. C2-C3: Disc desiccation small posterior disc osteophyte complex. No central canal or neural foraminal stenosis. C3-C4: Disc desiccation and small posterior disc osteophyte complex centrally abutting the ventral cord. Mild central canal stenosis. Facet and uncovertebral arthropathy. Moderate left and mild right neural foraminal stenosis is similar compared to prior. C4-C5: Disc desiccation height loss. Minimal posterior disc osteophyte complex. No central canal stenosis. Facet and uncovertebral arthropathy. Moderate left and mild right neural foraminal stenosis is stable. C5-C6: Disc desiccation height loss. Small posterior disc osteophyte complex. Mild central canal stenosis. Facet and uncovertebral arthropathy. Moderate left and mild right neural foraminal stenosis. C6-C7: Disc desiccation height loss. Small posterior disc osteophyte complex. Mild central canal stenosis. Facet and uncovertebral arthropathy. Moderate left and mild right neural foraminal stenosis. C7-T1: No central canal or neural foraminal stenosis. IMPRESSION: 1. Multilevel degenerative changes of the cervical spine which are not significantly changed compared to prior, as described above. 2. Mild central canal stenosis at C3-C4, C5-C6 and C6-C7. 3. Multilevel mild and moderate neural foraminal stenosis as above. 4. Bilateral thyroid nodule measuring up to 1.6 centimeters. Recommend thyroid ultrasound for further evaluation. Dictated by: Kalin Del Rio M.D. on 02/01/2023 at 9:18 Approved by: Kalin Del Rio M.D. on 02/01/2023 at 9:27
== END ==
PROVIDERS: PCP Nurse Practitioner Family; Referring Provider Physical Medicine & Rehabilitation; Visit Provider Physical Medicine & Rehabilitation
DX: M47.22 Other spondylosis with radiculopathy, cervical region (principal); M48.02 Spinal stenosis, cervical region; E04.2 Nontoxic multinodular goiter
CPT/HCPCS: 72141

== ENCOUNTER 2023-02-10 09:05 | Outpatient (CLI) | payer OTHER, MEDICARE, SELFPAY ==
[2017-09-12 10:20] VITALS: BMI 24.3
[2023-02-10] VITALS (8 sets, daily range): BP systolic 135–160; BP diastolic 70–81; PULSE 48–52; RESP 12–21; TEMP 36.3; O2SAT 95–100
--- NOTE | 2023-02-10 09:45 | DI.RAD.S_ITS ---
PROCEDURE: PAIN C/T FACET INJ/BLK 1ST L INDICATIONS: RADICULOPATHY COMPARISON: [facility], CR, XR CERVICAL SPINE 4V OR 5V, 01/26/2023, 14:50. [facility], MR, MR CERVICAL SPINE WO CON, 01/31/2023, 19:49. FINDINGS: Fluoroscopic spot filming was performed to verify placement of spinal needles on the left at the C5-C6 and C6-C7 levels, as labeled on the films. Appropriate location of the needle tips was confirmed by injection of iodinated contrast. IMPRESSION: Intraprocedural examination demonstrating appropriate positions of the needles. Dictated by: Ric De Jesus M.D. on 02/10/2023 at 18:50 Approved by: Ric De Jesus M.D. on 02/10/2023 at 18:50
[2023-02-10] MEDS: MIDAZOLAM 2 MG/2 ML VIAL 1 MG IV (10:14)
[2023-02-10] MEDS: BUPIVACAINE 0.25% (PF) VIAL 2 ML INJ (10:16)
[2023-02-10] MEDS: DEXAMETHASONE 10 MG/ML VIAL 20 MG INJ (10:17)
[2023-02-10] MEDS: iopamidoL 15 ML VIAL 3 ML INJ (10:17)
--- NOTE | 2023-02-10 10:33 | P.PCN_ITS ---
Date/Time/Diagnoses Date of procedure: 02/10/23 Time of procedure: 10:33 Pre-procedure diagnosis: 1. FACET ARTHROPATHY 2. AXIAL NECK PAIN Post-procedure diagnosis: same Procedure Notes Procedure: 1. FLUOROSCOPICALLY GUIDED, CONTRAST-CONTROLLED LEFT C5/6 AND C6/7 FACET JOINT INJECTIONS WITH CONSCIOUS SEDATION. Indications: Maddie is referred by SHABBIR Sanchez for treatment of Axial Neck Pain Physician: Wale Valencia Total Fluoroscopy time (seconds): 13 Total sedation minutes: 10 Complications: none Procedure in detail & Post-procedure care: DESCRIPTION OF PROCEDURE Fluoroscopically guided, contrast-controlled left C5/6 and C6/7 facet joint injections with conscious sedation. Following review of allergy and review of potential side effects and complications, including, but not necessarily limited to, infection, allergic reaction, local tissue breakdown, stroke, temporary or permanent nerve injury and paralysis, the patient indicated that the patient understood and agreed to proceed. An informed consent document was signed by the patient, witnessed by a nurse, and placed in the patient's chart. Additionally, other treatment options including medications, modalities, and physical therapy were reviewed with the patient. After review of previous anaesthesic history and IV conscious sedation the patient was deemed safe to proceed with today?s procedure with IV conscious sedation as ASA class II designation. Safety time-out was performed to confirm patient ID, procedure to be performed and site of procedure. IV sedation was accomplished with a combination of 1mg of Versed was administered by the RN after DO order, titrated to patient comfort during the course of the procedure while the patient remained responsive to all verbal commands In the prone position, following sterile prep and drape of the cervical spine region, the posterior aspect of the left C5/6 and C6/7 facet joints were identified fluoroscopically. The skin was anesthetized via a 25-gauge 1.5-inch needle with 1% lidocaine solution into the corresponding facet joints. At this point, a 25-gauge 2.5-inch spinal needle was atraumatically introduced and advanced under fluoroscopic guidance into the corresponding facet joints. Following negative aspiration, injections of approximately 0.2cc of Isovue 200 confirmed interarticular placement without vascular uptake. At this point, a total of 1cc including 0.5cc or 5mg of dexamethasone combined with 0.5cc of 1% lidocaine solution was injected without complication into each of the corresponding facet joints. The procedure tolerated the procedure well without signs or symptoms of complications prior to transfer to the recovery area continued monitoring without incident. The patient was then transferred to the recovery area where they were observed for an appropriate period of time after the injection. The patient reported a VAS score of 7 prior to the procedure and a post- procedure VAS of 0. POST OP INSTRUCTIONS They were provided a Pain Log to continue to record their response to the target-specific procedure prior to their follow-up visit with their referring physician. Additionally, specific post-injection care instructions and a contact number to our office were provided if concerns arise regarding possible complications associated with the procedure are suspected.
== END 2023-02-10 11:04 | disposition home or self-care (01) ==
LOC: RAD 09:07
PROVIDERS: PCP Nurse Practitioner Family; Referring Provider Physical Medicine & Rehabilitation; Visit Provider Physical Medicine & Rehabilitation
DX: M47.812 Spondylosis without myelopathy or radiculopathy, cervical region (principal)
CPT/HCPCS: 64490; 64491; 99152; J1100; J2250; J3490

== ENCOUNTER 2024-06-05 08:29 | Outpatient (CLI) | payer OTHER, MEDICARE, SELFPAY ==
[2017-09-12 10:20] VITALS: BMI 24.3
[2024-06-05] VITALS (9 sets, daily range): BP systolic 158–186; BP diastolic 68–83; PULSE 53–57; RESP 14–17; TEMP 36.4; O2SAT 96–99
[2024-06-05] MEDS: MIDAZOLAM 2 MG/2 ML VIAL IV (09:42)
[2024-06-05] MEDS: iopamidoL 15 ML VIAL 3 ML INJ (09:48)
[2024-06-05] MEDS: DEXAMETHASONE 10 MG/ML VIAL 20 MG INJ (09:49)
[2024-06-05] MEDS: BUPIVACAINE 0.5% (PF) 10 ML VIAL 2 ML INJ (09:49)
[2024-06-05] MEDS: DEXAMETHASONE 10 MG/ML VIAL INJ (09:49)
--- NOTE | 2024-06-05 10:07 | P.PCN_ITS ---
Date/Time/Diagnoses Date of procedure: 06/05/24 Time of procedure: 10:07 Pre-procedure diagnosis: 1. FACET ARTHROPATHY 2. AXIAL NECK PAIN Post-procedure diagnosis: same Procedure Notes Procedure: 1. FLUOROSCOPICALLY GUIDED, CONTRAST-CONTROLLED LEFT C5/6 AND C6/7 FACET JOINT INJECTIONS WITH CONSCIOUS SEDATION. Indications: Maddie is referred by SHABBIR Sanchez for treatment of Axial Neck Pain Physician: Wale Valencia Total Fluoroscopy time (seconds): 12 Total sedation minutes: 15 Complications: none Procedure in detail & Post-procedure care: DESCRIPTION OF PROCEDURE Fluoroscopically guided, contrast-controlled left C5/6 and C6/7 facet joint injections with conscious sedation. Following review of allergy and review of potential side effects and complications, including, but not necessarily limited to, infection, allergic reaction, local tissue breakdown, stroke, temporary or permanent nerve injury and paralysis, the patient indicated that the patient understood and agreed to proceed. An informed consent document was signed by the patient, witnessed by a nurse, and placed in the patient's chart. Additionally, other treatment options including medications, modalities, and physical therapy were reviewed with the patient. After review of previous anaesthesic history and IV conscious sedation the patient was deemed safe to proceed with today?s procedure with IV conscious sedation as ASA class II designation. Safety time-out was performed to confirm patient ID, procedure to be performed and site of procedure. IV sedation was accomplished with a combination of 2mg of Versed and 50mcg of Fentanyl was administered by the RN after DO order, titrated to patient comfort during the course of the procedure while the patient remained responsive to all verbal commands In the prone position, following sterile prep and drape of the cervical spine region, the posterior aspect of the left C5/6 and C6/7 facet joints were identified fluoroscopically. The skin was anesthetized via a 25-gauge 1.5-inch needle with 1% lidocaine solution into the corresponding facet joints. At this point, a 25-gauge 2.5-inch spinal needle was atraumatically introduced and advanced under fluoroscopic guidance into the corresponding facet joints. Following negative aspiration, injections of approximately 0.2cc of Isovue 200 confirmed interarticular placement without vascular uptake. At this point, a total of 1cc including 0.5cc or 5mg of dexamethasone combined with 0.5cc of 1% lidocaine solution was injected without complication into each of the corresponding facet joints. The procedure tolerated the procedure well without signs or symptoms of complications prior to transfer to the recovery area continued monitoring without incident. The patient was then transferred to the recovery area where they were observed for an appropriate period of time after the injection. The patient reported a VAS score of 7 prior to the procedure and a post- procedure VAS of 0. POST OP INSTRUCTIONS They were provided a Pain Log to continue to record their response to the target-specific procedure prior to their follow-up visit with their referring physician. Additionally, specific post-injection care instructions and a contact number to our office were provided if concerns arise regarding possible complications associated with the procedure are suspected.
== END 2024-06-05 10:15 | disposition home or self-care (01) ==
LOC: RAD 08:35
PROVIDERS: PCP Nurse Practitioner Family; Referring Provider Physical Medicine & Rehabilitation; Visit Provider Physical Medicine & Rehabilitation
DX: M47.812 Spondylosis without myelopathy or radiculopathy, cervical region (principal)
CPT/HCPCS: 64490; 64491; 64493; 64494; 99152; J1100; J2250

== ENCOUNTER → 2024-07-13 10:10 | Outpatient (CLI) | payer OTHER, MEDICARE, SELFPAY ==
[2017-09-12 10:20] VITALS: BMI 24.3
--- NOTE | 2024-07-13 10:13 | DI.RAD.S_ITS ---
PROCEDURE: XR LUMBAR SPINE MIN 4V INDICATIONS: BACK PAIN TECHNIQUE: 5 views of the lumbar spine were acquired, including bilateral oblique views. COMPARISON: None. FINDINGS: Bones: 5 nonrib-bearing vertebrae are present. There is normal bony alignment. No vertebral body compression fractures. No suspicious bony lesions. Moderate disc height loss at L5-S1, L2-3. Mild disc height loss at remaining levels. Facet arthrosis L4-5 and L5-S1. Soft tissues: Overlying bowel gas pattern is normal. No suspicious soft tissue calcifications. Surgical clips project over the pelvic inlet. Oblique images: No pars defects. IMPRESSION: Mild to moderate, multilevel degenerative disc disease and lower lumbar facet arthrosis. Dictated by: Michael Scales M.D. on 07/13/2024 at 11:19 Approved by: Michael Scales M.D. on 07/13/2024 at 11:20
== END ==
PROVIDERS: PCP Nurse Practitioner Family; Referring Provider Physical Medicine & Rehabilitation; Visit Provider Physical Medicine & Rehabilitation
DX: M51.369 Other intervertebral disc degeneration, lumbar region without mention of lumbar back pain or lower extremity pain (principal); M51.379 Other intervertebral disc degeneration, lumbosacral region without mention of lumbar back pain or lower extremity pain; M47.816 Spondylosis without myelopathy or radiculopathy, lumbar region; M47.817 Spondylosis without myelopathy or radiculopathy, lumbosacral region; R20.0 Anesthesia of skin; M54.9 Dorsalgia, unspecified
CPT/HCPCS: 72110